=== PATIENT | female | born 1995 | race African-American/Black ===

== ENCOUNTER 2023-02-01 22:19 | Emergency (ER) | payer MEDICAID ==
[~2023-02-01] VITALS: Ht 165.1 cm; Wt 48.0 kg
[2023-02-01 22:54] VITALS: TEMP 98.7; O2SAT 100
[2023-02-01 23:17] LABS: BASOPHILS % 0.4 % (0.0-2.0); EOSINOPHILS % 0.1 % (0.0-5.0); HEMATOCRIT. 36.6 % (36.0-48.0); HEMOGLOBIN. 12.4 g/dL (12.0-16.0); LYMPHOCYTES % 12.3 % (20.0-50.0); MEAN CORPUSCULAR HEMOGLOBIN 30.5 pg (28.0-32.0); MEAN CORPUSCULAR VOLUME 89.9 fL (81.0-99.0); MEAN PLATELET VOLUME 8.3 fl (7.4-10.4); MONOCYTES % 4.6 % (2.0-8.0); NEUTROPHILS % 82.6 % (40.0-76.0); PLATELET 284 x1000/uL (130-400); RED BLOOD CELL COUNT 4.07 mill/uL (4.2-5.4); RED CELL DISTRIBUTION WIDTH 13.4 % (11.6-14.6)
[2023-02-01 23:25] LABS: CHLORIDE 107 mEq/L (98-107)
[2023-02-02 02:22] LABS: CLARITY URINE CLOUDY (CLEAR); COLOR URINE YELLOW (YELLOW); KETONES URINE 3+ (NEGATIVE); LEUKOCYTE ESTERASE URINE TRACE (NEGATIVE); NITRITE URINE NEGATIVE (NEGATIVE); OCCULT BLOOD URINE NEGATIVE (NEGATIVE); PH URINE 7.5 (4.5-8.0); PROTEIN URINE 1+ (NEGATIVE); SPECIFIC GRAVITY URINE 1.028 (1.005-1.030)
[2023-02-02] MEDS ORDERED: ONDANSETRON 4MG ODT PO ONE (03:00)
[2023-02-02 04:01] VITALS: BP 114/81; PULSE 102; RESP 20
[2023-02-02] MEDS ORDERED: ONDA4TAB50 MT (04:03)
== END 2023-02-02 04:35 | disposition home or self-care (01) ==
LOC: ER 22:19
DX: R11.2 Nausea with vomiting, unspecified (principal); R51.9 Headache, unspecified
CPT/HCPCS: 99283; 80053; 81025; 85025; 36415; 81003; Q0162

== ENCOUNTER 2024-04-10 10:35 | Emergency (ER) | payer MEDICAID ==
[~2024-04-10] VITALS: Ht 162.6 cm; Wt 47.0 kg
[~2024-04-10 10:35] MED LIST: ONDA4TAB50 MT
[2024-04-10 10:38] VITALS: PULSE 72; RESP 18; O2SAT 99
[2024-04-10 10:42] VITALS: BP 140/89; TEMP 98; O2SAT 99
== END 2024-04-10 11:22 | disposition home or self-care (01) ==
LOC: ER 10:49
DX: S90.31XA Contusion of right foot, initial encounter (principal); X58.XXXA Exposure to other specified factors, initial encounter; Y93.89 Activity, other specified; Y92.89 Other specified places as the place of occurrence of the external cause; Y99.8 Other external cause status
CPT/HCPCS: 99281

== ENCOUNTER 2024-07-26 07:36 | Emergency (ER) | payer MEDICAID ==
[~2024-07-26] VITALS: Ht 165.1 cm; Wt 48.0 kg
[2024-07-26] MEDS: PREDNISONE 20MG TABLET PO ONE (09:11)
[2024-07-26 09:30] VITALS: PULSE 86; RESP 20; O2SAT 99
[2024-07-26] MEDS: IPRATROPIUM/ALBUTEROL 0.5-3(2.5)MG/3ML NEB HHN ONE (09:30)
[2024-07-26] MEDS: ALBUTEROL (0.083%) 2.5MG/3ML NEB HHN ONE (09:30)
[2024-07-26 09:53] LABS: BASOPHILS % 0.8 % (0.0-2.0); EOSINOPHILS % 1.5 % (0.0-5.0); HEMATOCRIT. 38.6 % (36.0-48.0); HEMOGLOBIN. 12.9 g/dL (12.0-16.0); LYMPHOCYTES % 29.2 % (20.0-50.0); MEAN CORPUSCULAR HEMOGLOBIN 30.5 pg (28.0-32.0); MEAN CORPUSCULAR HGB CONC 33.4 g/dL (31.0-37.0); MEAN CORPUSCULAR VOLUME 91.4 fL (81.0-99.0); MEAN PLATELET VOLUME 8.6 fl (7.4-10.4); MONOCYTES % 7.1 % (2.0-8.0); NEUTROPHILS % 61.4 % (40.0-76.0); PLATELET 252 x1000/uL (130-400); RED BLOOD CELL COUNT 4.23 mill/uL (4.2-5.4); RED CELL DISTRIBUTION WIDTH 13.5 % (11.6-14.6); WHITE BLOOD COUNT 5.2 x1000/uL (4.5-11.0)
[2024-07-26 09:59] LABS: CHLORIDE 105 mEq/L (98-107); POTASSIUM 3.9 mEq/L (3.5-5.1); SODIUM 139 mEq/L (136-145)
[2024-07-26 10:00] LABS: CALCIUM 9.5 mg/dL (8.7-10.4); CARBON DIOXIDE 26 mEq/L (21-32)
[2024-07-26 10:05] LABS: GLUCOSE 90 mg/dL (70-105); UREA NITROGEN BLOOD 11 mg/dL (9-23)
[2024-07-26 10:21] LABS: TROPONIN I HIGH SENSITIVITY < 4 ng/L (3.0-34)
[2024-07-26] MEDS ORDERED: P50 MT (10:33)
[2024-07-26] MEDS ORDERED: GUAI237L83 MT (10:33)
[2024-07-26] MEDS ORDERED: TOPUD PO (10:38)
[2024-07-26] MEDS ORDERED: IBUP-2028 MT (10:38)
[2024-07-26 10:45] VITALS: BP 128/81; PULSE 78; RESP 20; TEMP 36.83628; O2SAT 99
== END 2024-07-26 10:50 | disposition home or self-care (01) ==
LOC: ER 07:36
DX: J45.901 Unspecified asthma with (acute) exacerbation (principal); J06.9 Acute upper respiratory infection, unspecified; Z79.899 Other long term (current) drug therapy; Z20.822 Contact with and (suspected) exposure to COVID-19
CPT/HCPCS: 80048; 85025; 84484; 87804 ×2; 36415; 71045; 94640; 93005; 99285; 87426; J7512; Z7610 ×4; 94070